=== PATIENT | female | born 1980 ===

== ENCOUNTER → 2018-02-10 | Outpatient (CLI) | payer SELFPAY ==
[2018-02-10 13:53] LABS: Appearance, Urine Clear (Clear); Bilirubin, Urine Neg (Neg); Blood, Urine 4+ (Neg); Color, Urine Yellow (P-Yellow); Glucose Qualitative, Urine Neg (Neg); Ketones, Urine Neg (Neg); Leukocyte Esterase, Urine 1+ (Neg); Nitrite, Urine Neg (Neg); Protein, Urine Neg (Neg); Urobilinogen, Urine 1+ (Normal)
[2018-02-10 14:22] LABS: Bacteria Few /hpf; Red Blood Cells, Urine Not Seen /hpf (0-2); Squamous Epithelial Cells Mod /hpf (Few)
== END | disposition home or self-care (01) ==
LOC: LAB UCHC 12:04 → LAB SHORT 12:04
PROVIDERS: Nurse Practitioner Family
DX: L50.9 Urticaria, unspecified (principal)
CPT/HCPCS: 81001; 87086

== ENCOUNTER → 2018-03-23 | Outpatient (CLI) | payer OTHER | END | disposition home or self-care (01) | LOC: LAB 13:21 → LAB SHORT 13:21 | DX: M54.5 Low back pain (principal) | CPT/HCPCS: 87086 ==

== ENCOUNTER → 2019-06-28 | Outpatient (CLI) | payer SELFPAY ==
[2019-06-28 14:40] LABS: Candida species (DNA Probe) Positive (NEGATIVE); G. vaginalis (DNA Probe) Negative (NEGATIVE); T. vaginalis (DNA Probe) Negative (NEGATIVE)
== END | disposition home or self-care (01) ==
LOC: LAB 12:49 → LAB SHORT 12:49
PROVIDERS: Internal Medicine
DX: R20.8 Other disturbances of skin sensation (principal)
CPT/HCPCS: 87480; 87510; 87660

== ENCOUNTER 2021-03-17 12:57 | Emergency (ER) | payer OTHER ==
[~2021-03-17] VITALS: Ht 157.5 cm; Wt 67.6 kg
[2021-03-17] MEDS ORDERED: GABA300 PO (13:05)
== END 2021-03-17 13:58 | disposition home or self-care (01) ==
LOC: ER 12:57
DX: M77.8 Other enthesopathies, not elsewhere classified (principal); Z79.899 Other long term (current) drug therapy
CPT/HCPCS: 29125; 73110; 99283-25

== ENCOUNTER 2021-06-22 14:52 | Emergency (ER) | payer OTHER ==
[~2021-06-22] VITALS: Ht 160 cm; Wt 70.3 kg
[~2021-06-22 14:52] MED LIST: CYCL10 PO; GABA300 PO
[2021-06-22] MEDS ORDERED: LIDO700A20 TOP (16:43)
[2021-06-22] MEDS ORDERED: Ativan1 MG PO (16:43)
[2021-06-22] MEDS ORDERED: IBUP600 PO (16:43)
== END 2021-06-22 16:51 | disposition home or self-care (01) ==
LOC: ER 14:52
DX: M62.838 Other muscle spasm (principal)
CPT/HCPCS: 96372; 99282-25; A9270; J1885

== ENCOUNTER 2021-06-30 14:25 | Emergency (ER) | payer OTHER ==
[~2021-06-30] VITALS: Ht 154.9 cm; Wt 72.6 kg
[~2021-06-30 14:25] MED LIST changes: +Ativan1 MG PO; +IBUP600 PO; +LIDO700A20 TOP
[2021-06-30] MEDS ORDERED: LIDO700A20 TOP (17:11)
[2021-06-30] MEDS ORDERED: META800 PO (17:11)
== END 2021-06-30 17:14 | disposition home or self-care (01) ==
LOC: ER 14:25
DX: M54.2 Cervicalgia (principal); Z79.899 Other long term (current) drug therapy
CPT/HCPCS: 96372; 99282-25; J1885

== ENCOUNTER → 2022-09-09 | Outpatient (CLI) | payer OTHER ==
[~2022-09-09] MED LIST changes: +META800 PO
[2022-09-09 16:01] LABS: Bun/Creatinine Ratio 18.2 (12.0-20.0); Calcium, Blood 8.5 mg/dL (8.5-10.1); Creatinine, Blood 0.49 mg/dL (0.40-1.00); Potassium, Blood 3.6 mmol/L (3.5-5.5)
== END | disposition home or self-care (01) ==
LOC: LAB SHORT 11:10
PROVIDERS: Family Medicine
DX: I10 Essential (primary) hypertension (principal)
CPT/HCPCS: 80048

== ENCOUNTER → 2023-11-30 | Outpatient (CLI) | payer OTHER ==
[2023-11-30 19:31] LABS: BASOPHILS ABSOLUTE AUTO 0.05 K/mm3 (0.00-0.23); BASOPHILS PERCENT AUTO 1 % (0-2); EOSINOPHILS ABSOLUTE AUTO 0.23 K/mm3 (0.00-0.68); EOSINOPHILS PERCENT AUTO 3 % (0-6); Hematocrit 40.3 % (33.0-51.0); Hemoglobin 13.3 g/dL (11.5-16.0); IMMATURE GRAN ABSOLUTE AUTO 0.01 K/mm3 (0.00-0.10); IMMATURE GRAN PERCENT AUTO 0 % (0-1); LYMPHOCYTES ABSOLUTE AUTO 2.19 K/mm3 (0.84-5.20); LYMPHOCYTES PERCENT AUTO 27 % (21-46); MONOCYTES PERCENT AUTO 6 % (4-13); Mean Corpuscular HGB 28.5 pg (26.0-34.0); Mean Corpuscular Volume 86 fL (80-100); Mean Platelet Volume 12.1 fL (9.1-12.4); NEUTROPHILS ABSOLUTE AUTO 5.19 K/mm3 (1.96-9.15); NEUTROPHILS PERCENT AUTO 64 % (41-73); Platelet Count 313 K/mm3 (150-400); RDW Coefficient Variation 13.3 % (11.7-14.2); Red Blood Cell Count 4.67 M/mm3 (3.80-5.20); White Blood Cell Count 8.17 K/mm3 (4.00-11.30)
[2023-11-30 20:33] LABS: Alanine Aminotransfer (ALT/SGP 28 U/L (12-78); Albumin, Blood 3.8 g/dL (3.4-5.0); Albumin/Globulin Ratio 0.9 (0.8-1.8); Alk Phos 85 U/L (50-136); Anion Gap 10 mmol/L (3-11); Aspartate Aminotrans (AST/SGOT 24 U/L (12-37); Bilirubin, Total 0.3 mg/dL (0.1-1.0); Blood Urea Nitrogen 5 mg/dL (8-24); Bun/Creatinine Ratio 8.6 (12.0-20.0); CHOL/HDL RATIO 4.2; CO2, Blood 23 mmol/L (21-32); Calcium, Blood 8.8 mg/dL (8.5-10.1); Chloride, Blood 109 mmol/L (98-108); Cholesterol 172 mg/dL (50-200); Creatinine, Blood 0.58 mg/dL (0.40-1.00); Globulin, Blood 4.3 g/dL (2.2-4.0); Glomerular Filtration Rate 114 (60-); Glucose, Blood 102 mg/dL (70-99); HDL Cholesterol 41 mg/dL (>39); LDL/HDL RATIO 2.4; Low Density Lipoprotein Chol 99 mg/dL (0-110); Potassium, Blood 3.9 mmol/L (3.5-5.5); Sodium, Blood 138 mmol/L (136-145); Total Protein, Blood 8.1 g/dL (6.4-8.2); Triglycerides 159 mg/dL (30-160); Very Low Density Lipoprot Chol 31 mg/dL (6-32)
== END ==
LOC: LAB 18:55 → LAB SHORT 18:55
PROVIDERS: Family Medicine
DX: I10 Essential (primary) hypertension (principal)
CPT/HCPCS: 80053; 80061; 83036; 85025

== ENCOUNTER 2024-01-18 10:03 | Day surgery (SDC) | payer OTHER ==
[~2024-01-18] VITALS: Ht 157.5 cm; Wt 71.0 kg
[~2024-01-18 10:03] MED LIST changes: +Lactated Ringer's 1,000 ML IV ONE; +Lidocaine 1%-Epineph 1:100000 20 ML MDV ONE
[2024-01-18] MEDS ORDERED: Lactated Ringer's 1,000 ML IV ONE (10:25)
[2024-01-18] MEDS ORDERED: ALLERGY MEDICINE (10:31)
[2024-01-18] MEDS ORDERED: LOSA50 PO (10:31)
[2024-01-18] MEDS ORDERED: Midazolam HCl 1MG / ML 2ML Vial ONE (11:07)
--- NOTE | 2024-01-18 11:32 | NUR ---
01/18/24 1132 NIDIA OLEARY IN TO PRE OP FOR LOCAL INJECTION OF PATIENT. ICE PACK REMOVED. PT MEDICATED WITH 2MG VERSED VIA IV PER ANESTHESIA, BUTT, MO PT TOLERATED INJECTION WELL AND VSS T/O. WILL CONTINUE TO MONITOR PT UNTIL REPORT GIVEN TO OR NURSE
[2024-01-18] MEDS ORDERED: Ketorolac Tromethamine 30mg Vial ONE (11:44)
[2024-01-18 12:03] VITALS: BP 120/58
--- NOTE | 2024-01-18 12:28 | NUR ---
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
== END 2024-01-18 12:27 | disposition home or self-care (01) ==
LOC: ORSCSDS 10:03
PROVIDERS: Orthopaedic Surgery
PROC: 01N54ZZ Release Median Nerve, Percutaneous Endoscopic Approach (ICD-10-PCS; principal; 2024-01-18 11:30)
DX: G56.01 Carpal tunnel syndrome, right upper limb (principal); I10 Essential (primary) hypertension; Z79.899 Other long term (current) drug therapy
CPT/HCPCS: J1885; J2250; J7120

== ENCOUNTER → 2024-05-09 | Outpatient (CLI) | payer OTHER ==
[~2024-05-09] MED LIST changes: +ALLERGY MEDICINE; +LOSA50 PO; -Lactated Ringer's 1,000 ML IV ONE; -Lidocaine 1%-Epineph 1:100000 20 ML MDV ONE
[2024-05-16 19:57] LABS: HPV HIGH RISK BY TMA Not Detected; HPV SOURCE Cervical
== END ==
LOC: LAB 16:59 → LAB SHORT 16:59
PROVIDERS: Family Medicine
DX: Z01.419 Encounter for gynecological examination (general) (routine) without abnormal findings (principal)
CPT/HCPCS: 87624; G0123